=== PATIENT | male | born 1985 | race Caucasian/White ===

== ENCOUNTER → 2017-02-17 | Outpatient (CLI) | payer BC ==
[2017-02-17 14:15] LABS: DAYS OF ABSTINENCE 6; METHOD OF COLLECTION MASTURBATION; SEMEN COLOR YELLOW-GRAY (GRY/GRYWHTE); SEMEN TIME OF COLLECTION 1158; TYPE OF SPECIMEN CONTAINER STERILE
[2017-02-17 14:18] LABS: SPERM VIABILITY STAIN NOT INDICATED % (>58%)
== END | disposition home or self-care (01) ==
LOC: C.LAB 12:43
PROVIDERS: ATTEND Obstetrics & Gynecology
DX: N46.9 Male infertility, unspecified (principal)

== ENCOUNTER 2017-08-20 09:33 | Emergency (ER) | payer BC, OTHER ==
[~2017-08-20] VITALS: Ht 177.8 cm; Wt 81.4 kg
[2017-08-20 09:37] VITALS: TEMP 36.9; Ht 177.8 cm; Wt 81.4 kg
[2017-08-20 09:50] VITALS: O2SAT 100
[2017-08-20] MEDS ORDERED: SODIUM CHLORIDE 0.9% 1000ML 2,000 ML IV STA (09:51)
--- NOTE | 2017-08-20 10:23 | EMERGENCY ROOM VISIT NOTE ---
History Report prepared by Jimbo: Mehul Lou Under the Supervision of: Dr. Andry Aguirre M.D. First contact with patient: 09:44 Chief Complaint: NEURO SYMPTOMS Stated Complaint: LIGHTHEADED,NUMBNESS ON LEFT SIDE OF FACE,FINGERS History of Present Illness The patient is a 31 year old male who presents to the Emergency Room with complaints of intermittent lightheadedness for the past couple of weeks. Patient is present with his . He states that the lightheadedness last different lengths of time from "1 second to up to 20 minutes". Patient states that the lightheadedness turns into a headache and dizziness. He states that he sometimes feels nauseas as well but denies feeling like the room is spinning. He states that the lightheadedness "just goes away" eventually. He states that it does not happen at the same times everyday. He states he does not notice any relief in symptoms with eating or drinking. Patient states that he went to his PCP at [facility] yesterday and got blood work done. He states that he got the results back yesterday which showed that he had high calcium levels. He states that he did not look up on the internet what high calcium levels could cause. Patient states that he got numb on the left side of his face with twitching in his jaw after reviewing the lab results. He states that the he got more numbness on the left side of his face and jaw prior to arrival today and then also started to have numbness in his finger tips. Patient adds that he has numbness in his forearm as well. Patient adds that he currently feels numbness in his fingertips. He denies a history of similar symptoms. Patient adds that he has no known medical problems. Patient denies vomiting, diarrhea, and burning with urination. Patient denies a history of tick bites. He denies going into the arenas recently. He states that he has an indoor cat. Patient states that he drinks alcohol very casually a "couple times a month". He denies drug use and smoking. He denies a family history of strokes in their 30's. Pertinent family history includes his father having Parkinson's Disease in his early 60' s. Patient adds that he is possibly dehydrated but states that it is no more than usual. He denies any significant changes in his lifestyle. He denies any more stress than usual. Patient states that he works in [employer] for [employer]. Source of History: patient Onset: Couple weeks ago Position: head Timing: intermittent Modifying Factors (Relieving): other (None) Associated Symptoms: + headache, + nausea, No vomiting, No diarrhea, No urinary symptoms Note: Patient has dizziness. Review of Systems See HPI for pertinent positives and negatives. A total of ten systems were reviewed and were otherwise negative. Past Medical & Surgical No pertinent past medical & surgical history. Family History FHx: Parkinson's disease Social History Smoking Status: Never Smoker Marital Status: Housing Status: lives with family Occupation Status: employed Allergies Coded Allergies: No Known Allergies (Unverified , 08/20/17) Physical Exam Vital Signs Date Time Temp Pulse Resp B/P (MAP) Pulse Ox O2 Delivery O2 Flow Rate FiO2 08/20/17 11:51 70 13 100 Room Air 08/20/17 11:47 110/64 08/20/17 11:21 63 12 100 Room Air 08/20/17 10:51 60 12 116/70 100 Room Air 62 125/72 80 125/75 08/20/17 10:46 80 16 125/75 100 Room Air 08/20/17 10:45 62 16 125/72 100 Room Air 08/20/17 10:44 60 16 116/70 100 Room Air 08/20/17 10:38 70 16 99 08/20/17 10:33 68 12 98 08/20/17 10:31 129/83 08/20/17 10:05 80 08/20/17 10:01 135/90 08/20/17 09:50 100 Room Air 08/20/17 09:37 36.9 78 20 128/85 100 Room Air Physical Exam GENERAL: Awake, alert, well-appearing, in no distress HENT: Normocephalic, atraumatic. Oropharynx unremarkable. EYES: Normal conjunctiva. Sclera non-icteric. NECK: Supple. No nuchal rigidity. FROM. No JVD. RESPIRATORY: Clear to auscultation. CARDIAC: Regular rate, normal rhythm. Extremities warm and well perfused. Pulses equal. ABDOMEN: Soft, non-distended. No tenderness to palpation. No rebound or guarding. No masses. RECTAL: Deferred. MUSCULOSKELETAL: Chest examination reveals no tenderness. The back is symmetrical on inspection without obvious abnormality. There is no CVA tenderness to palpation. No joint edema. LOWER EXTREMITIES: Calves are equal size bilaterally and non-tender. No edema. No discoloration. NEURO: Normal sensorium. No sensory or motor deficits noted. Normal cerebellar function with [id number], alternating palms, [id number]. SKIN: No rash or jaundice noted. Medical Decision & Procedures ER Provider Diagnostic Interpretation: Radiology results as stated below per my review and radiologist interpretation: CHEST ONE VIEW PORTABLE HISTORY: 31 years-old Male CHEST PAIN acute atypical chest pain COMPARISON: None available TECHNIQUE: Portable AP view of the chest FINDINGS: Cardiomediastinal and hilar silhouettes are within normal limits. There is no pneumothorax, pleural effusion, focal airspace consolidation or overt pulmonary edema. The bones of the chest appear grossly intact. IMPRESSION: No acute process. The above report was generated using voice recognition software. It may contain grammatical, syntax or spelling errors. Electronically signed by: Adrian Alonso M.D. 08/20/2017 10:33 AM HEAD WITHOUT CONTRAST (CT) CLINICAL HISTORY: 31 years-old Male with left facial numbness. Acute left-sided facial numbness TECHNIQUE: Multiple axial CT images of the head were obtained without contrast. A dose lowering technique was utilized adhering to the principles of ALARA. CT DOSE: 614.27 mGy.cm COMPARISON: None. FINDINGS: No acute intracranial hemorrhage, midline shift, intracranial mass, hydrocephalus, territorial ischemia or abnormal extra-axial collection. The calvarium is intact. The paranasal sinuses, mastoid air cells, and middle ear cavities are clear. IMPRESSION: No acute intracranial abnormality. The above report was generated using voice recognition software. It may contain grammatical, syntax or spelling errors. Electronically signed by: Adrian Alonso M.D. 08/20/2017 11:01 AM Laboratory Results 08/20/17 10:29 Red Blood Count 4.87, Mean Corpuscular Volume 81.7, Mean Corpuscular Hemoglobin 28.3, Mean Corpuscular Hemoglobin Concent 34.7, Mean Platelet Volume 9.8, Neutrophils (%) (Auto) 71.4, Lymphocytes (%) (Auto) 20.4, Monocytes (%) (Auto) 6.2, Eosinophils (%) (Auto) 1.5, Basophils (%) (Auto) 0.3, Neutrophils # (Auto) 4.69, Lymphocytes # (Auto) 1.34, Monocytes # (Auto) 0.41, Eosinophils # (Auto) 0.10, Basophils # (Auto) 0.02 08/20/17 10:29 Test 08/20/17 10:29 White Blood Count 6.57 K/uL (4.8-10.8) Red Blood Count 4.87 M/uL (4.7-6.1) Hemoglobin 13.8 g/dL (14.0-18.0) Hematocrit 39.8 % (42-52) Mean Corpuscular Volume 81.7 fL (80-100) Mean Corpuscular Hemoglobin 28.3 pg (25-34) Mean Corpuscular Hemoglobin Concent 34.7 g/dl (32-36) Platelet Count 240 K/uL (130-400) Mean Platelet Volume 9.8 fL (7.4-10.4) Neutrophils (%) (Auto) 71.4 % Lymphocytes (%) (Auto) 20.4 % Monocytes (%) (Auto) 6.2 % Eosinophils (%) (Auto) 1.5 % Basophils (%) (Auto) 0.3 % Neutrophils # (Auto) 4.69 K/uL (1.4-6.5) Lymphocytes # (Auto) 1.34 K/uL (1.2-3.4) Monocytes # (Auto) 0.41 K/uL (0.11-0.59) Eosinophils # (Auto) 0.10 K/uL (0-0.5) Basophils # (Auto) 0.02 K/uL (0-0.2) RDW Standard Deviation 38.3 fL (36.4-46.3) RDW Coefficient of Variation 12.8 % (11.5-14.5) Immature Granulocyte % (Auto) 0.2 % Immature Granulocyte # (Auto) 0.01 K/uL (0.00-0.02) Anion Gap 6.0 mmol/L (3-11) Est Creatinine Clear Calc Drug Dose 133.1 ml/min Estimated GFR () 135.9 Estimated GFR (Non- 117.2 BUN/Creatinine Ratio 16.6 (10-20) Calcium Level 9.6 mg/dl (8.5-10.1) Phosphorus Level 3.0 mg/dl (2.5-4.9) Magnesium Level 2.3 mg/dl (1.8-2.4) Total Bilirubin 0.8 mg/dl (0.2-1) Direct Bilirubin 0.2 mg/dl (0-0.2) Aspartate Amino Transf (AST/SGOT) 17 U/L (15-37) Alanine Aminotransferase (ALT/SGPT) 27 U/L (12-78) Alkaline Phosphatase 78 U/L (45-117) Troponin I < 0.015 ng/ml (0-0.045) Total Protein 8.4 gm/dl (6.4-8.2) Albumin 4.3 gm/dl (3.4-5.0) Lipase 140 U/L (73-393) Laboratory results reviewed by me Medications Administered Medications (Trade) Dose Ordered Sig/Ozzie Route Start Time Stop Time Status Last Admin Dose Admin Sodium Chloride 2,000 ml @ 999 mls/hr Q2H1M STAT IV 08/20/17 09:51 08/20/17 11:51 DC 08/20/17 10:34 999 MLS/HR ECG Per My Interpretation Indication: other (Dizziness) Rate (beats per minute): 59 Rhythm: sinus bradycardia Findings: RBBB (Incomplete), other (Normal [place]) ED Course 0946: The patient was evaluated in room C9. A complete history and physical exam was performed. 1132: I reevaluated the patient. Discussed results and discharge instructions. He verbalized understanding and agreement. The patient is ready for discharge. Medical Decision I reviewed the patient's past medical history, medications, and the nursing notes as described above. Differential diagnosis: Etiologies such as metabolic, infection, hypo/hyperglycemia, electrolyte abnormalities, cardiac sources, intracerebral event, toxicologic, neurologic, as well as others were entertained. The patient is a 31-year-old gentleman who presents to emergency department with 2 weeks of intermittent lightheadedness and now with complaint of intermittent numbness and tingling to the left face and left fingers per hpi. While the patient is well-appearing, no acute distress, afebrile stable vital signs. He has positive orthostatic vital signs suggesting dehydration. He is neurologically intact. EKG negative for acute ischemia and otherwise with incomplete right bundle branch block. No prior EKGs for comparison. Labs unremarkable. CT head negative. Chest x-ray negative. Patient was reassessed and was feeling marginally improved although still reported intermittent tingling to his left face and fingers. Given the patient's positive orthostatics and improved with IV fluids his symptoms are most likely related to mild dehydration. Additionally CT head negative and reassuring. Given the patient has no other risk factors or concerning family history, further emergent workup is not indicated at this time. Findings and plan for follow-up reviewed with patient. Patient agreeable and d/c'd per discharge instructions. Medication Reconcilliation Current Medication List: was personally reviewed by me Blood Pressure Screening Patient's blood pressure: Normal blood pressure Blood pressure disposition: Did not require urgent referral Impression Primary Impression: Dehydration Additional Impressions: Numbness of face Numbness of fingers Incomplete right bundle branch block Scribe Attestation The scribe's documentation has been prepared under my direction and personally reviewed by me in its entirety. I confirm that the note above accurately reflects all work, treatment, procedures, and medical decision making performed by me. Departure Information Dispostion Home / Self-Care Referrals Osmin Negron M.D. (PCP) Forms HOME CARE DOCUMENTATION FORM, IMPORTANT VISIT INFORMATION, WORK / SCHOOL INSTRUCTIONS Patient Instructions ED Dehydration, ED Paraesthesias, My [facility] Additional Instructions Please follow up with your primary care physician in the next 1-3 days for re- evaluation. Your symptoms are most likely due to dehydration. Otherwise, your exam, EKG, chest xray, lab results, and CT scan did not show signs of an emergent condition at this time. Drink plenty of fluids to ensure hydration. Return to the emergency department for worsening symptoms as described in the accompanying instructions. Problem Qualifiers
--- NOTE | 2017-08-20 10:35 | DIAGNOSTIC IMAGING REPORT ---
CHEST ONE VIEW PORTABLE HISTORY: 31 years-old Male CHEST PAIN acute atypical chest pain COMPARISON: None available TECHNIQUE: Portable AP view of the chest FINDINGS: Cardiomediastinal and hilar silhouettes are within normal limits. There is no pneumothorax, pleural effusion, focal airspace consolidation or overt pulmonary edema. The bones of the chest appear grossly intact. IMPRESSION: No acute process. The above report was generated using voice recognition software. It may contain grammatical, syntax or spelling errors. Electronically signed by: Adrian Alonso M.D. 08/20/2017 10:33 AM Dictated Date/Time: 08/20/2017 10:33 AM
[2017-08-20 10:38] LABS: BASO % 0.3 %; BASO ABS # 0.02 K/uL (0-0.2); EOS % 1.5 %; HEMATOCRIT 39.8 % (42-52); HEMOGLOBIN 13.8 g/dL (14.0-18.0); IG# 0.01 K/uL (0.00-0.02); LYMPH % 20.4 %; LYMPH ABS # 1.34 K/uL (1.2-3.4); MEAN CELL VOLUME 81.7 fL (80-100); MEAN CORPUSCULAR HEMOGLOBIN 28.3 pg (25-34); MEAN CORPUSCULAR HGB CONC 34.7 g/dl (32-36); MEAN PLATELET VOLUME 9.8 fL (7.4-10.4); MONO % 6.2 %; MONO ABS # 0.41 K/uL (0.11-0.59); NEUT % 71.4 %; NEUT ABS # 4.69 K/uL (1.4-6.5); PLATELET COUNT 240 K/uL (130-400); RED CELL DISTRIBUTION WIDTH CV 12.8 % (11.5-14.5); RED CELL DISTRIBUTION WIDTH SD 38.3 fL (36.4-46.3); WHITE BLOOD COUNT 6.57 K/uL (4.8-10.8)
[2017-08-20] MEDS ORDERED: MULT-506 PO (10:44)
--- NOTE | 2017-08-20 11:02 | DIAGNOSTIC IMAGING REPORT ---
HEAD WITHOUT CONTRAST (CT) CLINICAL HISTORY: 31 years-old Male with left facial numbness. Acute left-sided facial numbness TECHNIQUE: Multiple axial CT images of the head were obtained without contrast. A dose lowering technique was utilized adhering to the principles of ALARA. CT DOSE: 614.27 mGy.cm COMPARISON: None. FINDINGS: No acute intracranial hemorrhage, midline shift, intracranial mass, hydrocephalus, territorial ischemia or abnormal extra-axial collection. The calvarium is intact. The paranasal sinuses, mastoid air cells, and middle ear cavities are clear. IMPRESSION: No acute intracranial abnormality. The above report was generated using voice recognition software. It may contain grammatical, syntax or spelling errors. Electronically signed by: Adrian Alonso M.D. 08/20/2017 11:01 AM Dictated Date/Time: 08/20/2017 10:59 AM
[2017-08-20 11:38] LABS: ALBUMIN 4.3 gm/dl (3.4-5.0); ALT/SGPT 27 U/L (12-78); AST/SGOT 17 U/L (15-37); BLOOD UREA NITROGEN 14 mg/dl (7-18); CALCIUM 9.6 mg/dl (8.5-10.1); CARBON DIOXIDE 30 mmol/L (21-32); CREATININE 0.83 mg/dl (0.60-1.40); GLUCOSE 92 mg/dl (70-99); LIPASE 140 U/L (73-393); POTASSIUM 4.4 mmol/L (3.5-5.1); SODIUM 140 mmol/L (136-145)
[2017-08-20 11:42] LABS: ALKALINE PHOSPHATASE 78 U/L (45-117); TOTAL PROTEIN 8.4 gm/dl (6.4-8.2)
[2017-08-20 11:47] VITALS: BP 110/64
[2017-08-20 11:51] VITALS: PULSE 70; O2SAT 100
== END 2017-08-20 12:15 | disposition home or self-care (01) ==
LOC: C.EDB 09:34 → C.EDC 12:15
DX: E86.0 Dehydration (principal); R20.0 Anesthesia of skin; I45.10 Unspecified right bundle-branch block; Z82.0 Family history of epilepsy and other diseases of the nervous system

== ENCOUNTER → 2018-01-09 | Outpatient (CLI) | payer OTHER | END | disposition home or self-care (01) | LOC: C.LABBC 13:36 | PROVIDERS: ATTEND Psychiatry & Neurology Neurology | DX: R20.2 Paresthesia of skin (principal) ==